=== PATIENT | male | born 1980 | race Two or more races ===

== ENCOUNTER 2023-09-30 12:50 | Emergency (ER) | payer BC, OTHER ==
[~2023-09-30] VITALS: Ht 160 cm; Wt 55.7 kg
[2023-09-30 15:03] VITALS: BP 143/85; PULSE 92; RESP 16; TEMP 98; O2SAT 95
[2023-09-30] MEDS ORDERED: IBUP1TAB5 PO (16:16)
== END 2023-09-30 16:16 | disposition home or self-care (01) ==
LOC: ER 12:50
DX: S90.31XA Contusion of right foot, initial encounter (principal); Z79.1 Long term (current) use of non-steroidal anti-inflammatories (NSAID); X58.XXXA Exposure to other specified factors, initial encounter; Y93.89 Activity, other specified; Y92.89 Other specified places as the place of occurrence of the external cause; Y99.8 Other external cause status
CPT/HCPCS: 73650